=== PATIENT | female | born 1965 | race American Indian/Alaskan Native ===

== ENCOUNTER 2017-05-31 07:32 | Day surgery (SDC) | payer OTHER ==
[2016-07-28 12:29] VITALS: BMI 41.6
[2017-05-31 08:50] VITALS: O2SAT 100
--- NOTE | 2017-05-31 09:31 | CP.SDSHP ---
Same Day Surgery H & P - History Proposed Procedure: COLONSCOPY Pre-Op Diagnosis: SEE NOTES - Previous Medical/Surgical History Cardiac: Hypertension Pulmonary: Asthma Endocrine/Metabolic: Diabetes Neuro: Backaches Misc: Other Pain: 4.Moderate Pain - Allergies Allergies: Allergies acetaminophen [From Percocet] Allergy (Verified 06/01/16 06:43) DIZZINESS hallucinations aspirin Allergy (Verified 06/01/16 06:43) SWELLING oxycodone HCl [From Percocet] Allergy (Verified 06/01/16 06:43) DIZZINESS hallucinations [place] And Derivatives Adverse Reaction (Verified 06/01/16 06:43) DIARRHEA - Physical Exam General Appearance: N Vital Signs: Vital Signs 05/31/17 08:15 Temperature 97 F L Pulse Rate 80 Respiratory 20 Rate Blood Pressure 112/72 O2 Sat by Pulse 100 Oximetry Mental Status: Alert & Oriented x3 Neuro: WNL Heart: Other Lungs: Other GI: Other - {Optional Preform as Required} Breast: WNL Abdomen: Other Rectal: Other Integument: WNL : WNL Ortho: Other ENT: WNL - Impression Pt. Evaluated Today:Candidate for Anesthesia & Procedure: Yes - Date & Time Time: : Short Stay Discharge - Short Stay Discharge Admitting Diagnosis/Reason for Visit: RECTAL BLEEDING Disposition: HOME/ ROUTINE
[2017-05-31] MEDS ORDERED: Propofol 10 mg/ml Inj (20 ML) ONE ×3 (09:33→10:11)
[2017-05-31 11:05] VITALS: TEMP 97.1
[2017-05-31 11:36] VITALS: BP 144/91; PULSE 73; RESP 17
== END 2017-05-31 11:30 | disposition home or self-care (01) ==
LOC: C.ENDO 07:32
PROVIDERS: ATTEND Specialist
DX: K64.8 Other hemorrhoids (principal); K52.9 Noninfective gastroenteritis and colitis, unspecified; K60.2 Anal fissure, unspecified
CPT/HCPCS: 45380; 82948; 84703; 88305; J2704